=== PATIENT | male | born 1960 | race Two or more races ===

== ENCOUNTER 2024-09-15 13:10 | Emergency (ER) | payer OTHER ==
[~2024-09-15] VITALS: Ht 162.6 cm; Wt 72.7 kg
[2024-09-15 13:21] VITALS: BP 145/84; PULSE 84; RESP 18; TEMP 98; O2SAT 99
[2024-09-15 13:50] LABS: BASOPHILS % (AUTO) 0.3 % (0.0-2.0); EOSINOPHILS % (AUTO) 1.4 % (1.0-6.0); HEMATOCRIT 40.1 % (41-53); HEMOGLOBIN 13.5 g/dL (13.5-17.5); LYMPHOCYTES # (AUTO) 0.9 K/uL (1.0-4.8); MEAN CORPUSCULAR HEMOGLOBIN 31.1 pg (26.0-34.0); MEAN CORPUSCULAR HGB CONC 33.5 G/dL (31.0-37.0); MEAN CORPUSCULAR VOLUME 93 fL (80-100); MONOCYTES # (AUTO) 0.4 K/uL (0.1-1.0); MONOCYTES % (AUTO) 5.1 % (2.0-9.0); NEUTROPHILS # (AUTO) 5.9 K/uL (1.8-7.7); NEUTROPHILS % (AUTO) 81.2 % (40.0-70.0); PLATELET COUNT (AUTO) 256 K/uL (150-450); RED BLOOD CELL COUNT(AUTO) 4.33 MIL/uL (4.50-5.90); WHITE BLOOD COUNT (AUTO) 7.3 K/uL (4.5-11.0)
[2024-09-15 13:59] LABS: ANION GAP 8 mmol/L (8-16); CALCIUM, TOTAL 8.8 mg/dL (8.8-10.5); CARBON DIOXIDE 25 mmol/L (22-29); CHLORIDE 104 mmol/L (98-107); CREATININE 0.92 mg/dL (0.60-1.30); GLOMERULAR FILTR. RATE CALC > 60 mL/min (>60); GLUCOSE,RANDOM 147 mg/dL (70-110); POTASSIUM 4.3 mmol/L (3.5-5.1); SODIUM SERUM 137 mmol/L (136-145); UREA NITROGEN, BLOOD 14 mg/dL (7-18)
[2024-09-15 14:27] LABS: APPEARANCE,URINE CLEAR (CLEAR); BILIRUBIN,URINE NEGATIVE (NEGATIVE); COLOR,URINE YELLOW (YELLOW); GLUCOSE, URINE (UA) NEGATIVE (NEGATIVE); KETONES,URINE NEGATIVE (NEGATIVE); LEUKOCYTE ESTERASE ,URINE NEGATIVE (NEGATIVE); NITRATE,URINE NEGATIVE (NEGATIVE); OCCULT BLOOD,URINE LARGE (NEGATIVE); PROTEIN,URINE TRACE mg/dL (NEGATIVE); SPECIFIC GRAVITIY, URINE 1.035 (1.003-1.030); UROBILINOGEN,URINE <=1.0 mg/dL (<=1.0)
[2024-09-15 14:30] LABS: BACTERIA,URINE None Seen /HPF (None Seen); WBC,URINE None Seen /HPF (0-5)
[2024-09-15] MEDS: OxyCODONE HCL/ACETAMINOPHEN 5-325 MG TABLET PO ONE (14:56)
[2024-09-15] MEDS: KETOROLAC TROMETHAMINE 30 MG/ML VIAL IVP ONE (15:10)
[2024-09-15] MEDS: SODIUM CHLORIDE 0.9% 500 ML IV ONE (15:30)
[2024-09-15] MEDS ORDERED: IBUP-1492 PO (17:15)
== END 2024-09-15 17:26 | disposition home or self-care (01) ==
LOC: EMS 13:11
DX: N20.0 Calculus of kidney (principal); N50.82 Scrotal pain
CPT/HCPCS: 99285; 96374; 96361; 80048; 81001; 85025; 36415; 76870; J1885; J7040

== ENCOUNTER 2025-05-30 12:45 | Emergency (ER) | payer OTHER ==
[~2025-05-30] VITALS: Ht 157.5 cm; Wt 77.3 kg
[~2025-05-30 12:45] MED LIST: IBUP-1492 PO
[2025-05-30 13:01] VITALS: TEMP 98.6
[2025-05-30 13:26] LABS: APPEARANCE,URINE CLEAR (CLEAR); GLUCOSE, URINE (UA) NEGATIVE (NEGATIVE); LEUKOCYTE ESTERASE ,URINE NEGATIVE (NEGATIVE); NITRATE,URINE NEGATIVE (NEGATIVE); OCCULT BLOOD,URINE SMALL (NEGATIVE); SPECIFIC GRAVITIY, URINE 1.016 (1.003-1.030)
[2025-05-30 13:41] LABS: SQUAMOUS EPITHELIAL CELL,UR Rare /LPF (None Seen)
[2025-05-30 14:53] LABS: PLATELET COUNT (AUTO) 258 K/uL (150-450); RED BLOOD CELL COUNT(AUTO) 4.22 MIL/uL (4.50-5.90); RED CELL DISTRIBUTION WIDTH 13.0 % (11.5-14.5); WHITE BLOOD COUNT (AUTO) 6.8 K/uL (4.5-11.0)
[2025-05-30 15:07] LABS: ASPARTATE AMINOTRANSFERASE 21.0 U/L (15-37); TOTAL PROTEIN, SERUM 7.5 g/dL (6.4-8.2)
[2025-05-30 15:36] LABS: CALCIUM, TOTAL 8.6 mg/dL (8.8-10.5); CREATININE 0.84 mg/dL (0.60-1.30); GLOMERULAR FILTR. RATE CALC > 60 mL/min (>60); GLUCOSE,RANDOM 113 mg/dL (70-110); SODIUM SERUM 140 mmol/L (136-145); UREA NITROGEN, BLOOD 14 mg/dL (7-18)
[2025-05-30] MEDS: IBUPROFEN 600 MG TABLET PO ONE (15:47)
[2025-05-30] MEDS: ACETAMINOPHEN 500 MG TABLET PO ONE (15:47)
[2025-05-30 15:49] VITALS: BP 142/86; PULSE 65; RESP 18; O2SAT 96
[2025-05-30] MEDS ORDERED: IBUP-1554 PO (16:26)
[2025-05-30] MEDS ORDERED: ACET-2080 PO (16:26)
[2025-05-30] MEDS ORDERED: TAMS0.4C94 PO (16:26)
== END 2025-05-30 16:41 | disposition home or self-care (01) ==
LOC: EMS 12:45
DX: N20.0 Calculus of kidney (principal)
CPT/HCPCS: 74176; 80048; 80076; 81001; 83690; 85025; 99284